=== PATIENT | female | born 1990 | race Hispanic/Latino ===

== ENCOUNTER 2018-02-04 11:17 | Emergency (ER) | payer SELFPAY | END 2018-02-04 11:19 | disposition left against medical advice (07) | LOC: ED 11:17 | DX: M25.579 Pain in unspecified ankle and joints of unspecified foot (principal); Z53.21 Procedure and treatment not carried out due to patient leaving prior to being seen by health care provider ==

== ENCOUNTER 2019-11-16 12:34 | Outpatient (CLI) | payer SELFPAY ==
[2019-11-16 12:52] VITALS: BP 116/78
== END 2019-11-16 15:00 | disposition home or self-care (01) ==
LOC: TRG 12:34
PROVIDERS: ATTEND Obstetrics & Gynecology
DX: O47.1 False labor at or after 37 completed weeks of gestation (principal); Z3A.38 38 weeks gestation of pregnancy
CPT/HCPCS: Q0177